=== PATIENT | female | born 1960 | race Caucasian/White ===

== ENCOUNTER 2021-10-01 09:45 | Inpatient (IN) | payer BC ==
[~2021-10-01] VITALS: Ht 165.1 cm; Wt 83.0 kg
[2021-10-01 10:20] VITALS: BP_SYST 155
[2021-10-01 11:49] LABS: BASOPHILS # (AUTO) 0.1 K/uL (0.0-0.2); BASOPHILS % (AUTO) 1.8 % (0.0-2.0); EOSINOPHILS # (AUTO) 0.1 K/uL (0.0-0.4); EOSINOPHILS % (AUTO) 0.9 % (0.0-4.0); HEMATOCRIT 40.5 % (36-48); HEMOGLOBIN 13.6 g/dL (12.0-16.0); LYMPHOCYTES # (AUTO) 3.2 K/uL (1.0-5.5); LYMPHOCYTES % (AUTO) 40.2 % (20.5-51.5); MEAN CORPUSCULAR HEMOGLOBIN 30 pg (27-31); MEAN CORPUSCULAR HGB CONC 34 % (32-36); MEAN CORPUSCULAR VOLUME 90 fL (79.0-98.0); MONOCYTES # (AUTO) 0.4 K/uL (0.0-1.0); MONOCYTES % (AUTO) 4.8 % (1.7-9.3); NEUTROPHILS # (AUTO) 4.2 K/uL (1.8-7.7); NEUTROPHILS % (AUTO) 52.3 % (40.0-70.0); PLATELET COUNT (AUTO) 295 K/uL (130-430); RED CELL DISTRIBUTION WIDTH 13.5 % (9.0-15.0); WHITE BLOOD COUNT (AUTO) 8.1 K/uL (4.8-10.8)
[2021-10-01 11:56] LABS: ANION GAP 10 (5-15); CALCIUM 8.8 mg/dL (8.4-11.0); CHLORIDE 108 mmol/L (98-107); CREATININE 0.93 mg/dL (0.55-1.30); GLUCOSE 117 mg/dL (70-99); POTASSIUM 3.9 mmol/L (3.5-5.1); SODIUM SERUM 144 mmol/L (136-145); UREA NITROGEN, BLOOD 21 mg/dL (8-21)
[2021-10-01 12:01] LABS: GFR AFRICAN AMERICAN 79 mL/min (>90)
[2021-10-01 12:04] LABS: ALANINE AMINOTRANSFERASE 32 U/L (12-78); ALBUMIN 3.5 g/dL (3.4-4.8); ASPARTATE AMINOTRANSFERASE 25 U/L (10-37); TOTAL BILIRUBIN 0.4 mg/dL (0.0-1.0)
[2021-10-01 23:03] VITALS: BP_SYST 172
[2021-10-01] MEDS ORDERED: METO25TA3 PO (23:55)
[2021-10-01] MEDS ORDERED: AMLO5TAB4 PO (23:55)
[2021-10-01] MEDS ORDERED: METF-518 PO (23:55)
[2021-10-02] VITALS (7 sets, daily range): BP systolic 127–150
[2021-10-02] MEDS ORDERED: HYDROcodone/ACETAMIN 5-325 MG TAB (NORCO/ VICODIN) PO PRN (09:00)
[2021-10-02] MEDS ORDERED: NALOXONE HCL 0.4 MG/ML AMP (NARCAN) IVP PRN ×2 (09:00)
[2021-10-02] MEDS: amLODIPine BESYLATE 5 MG TABLET PO SCH (09:00)
[2021-10-02] MEDS ORDERED: LORazepam 2 MG/ML VIAL IVP PRN (09:00)
[2021-10-02] MEDS ORDERED: ONDANSETRON HCL 4 MG/2 ML VIAL IVP PRN (09:00)
[2021-10-02] MEDS ORDERED: HYDROcodone/ACETAMIN 10-325 MG TAB PO PRN (09:00)
[2021-10-02] MEDS ORDERED: ACETAMINOPHEN 325 MG TABLET PO PRN ×2 (09:00→09:30)
[2021-10-02] MEDS ORDERED: INSULIN REGULAR, HUMAN 100 UNITS/ML, 10 ML VIAL (humuLIN R) SUBCUT PRN (09:00)
[2021-10-02] MEDS ORDERED: DEXTROSE 50%-WATER 50 ML DISP.SYRIN IVP PRN (09:45)
[2021-10-02] MEDS ORDERED: D5W 1,000 ML IV PRN (09:45)
[2021-10-02] MEDS ORDERED: GLUCOSE (DEXTROSE) ORAL GEL -Adults PO PRN (09:45)
[2021-10-02] MEDS ORDERED: metFORMIN HCL 500 MG TABLET PO ONE (10:30)
[2021-10-02] MEDS: NORMAL SALINE 5 ML DISP.SYRIN IVF SCH ×2 (13:45→21:23)
[2021-10-02] MEDS ORDERED: NORMAL SALINE 5 ML DISP.SYRIN IVF SCH (14:00)
[2021-10-02] MEDS: metFORMIN HCL 500 MG TABLET PO SCH (17:00)
[2021-10-02] MEDS ORDERED: METOPROLOL SUCCINATE 25 MG TAB.SR.24H (TOPROL XL) PO SCH (21:00)
[2021-10-02] MEDS: METOPROLOL SUCCINATE 50 MG TAB.SR.24H (TOPROL XL) PO SCH (21:23)
[2021-10-02] MEDS: dilTIAZem HCL IVP 5 MG/ML VIAL IVP PRN (22:04)
[2021-10-03] VITALS: BP_SYST 130
[2021-10-03] MEDS: NORMAL SALINE 5 ML DISP.SYRIN IVF SCH ×3 (06:11→20:29)
[2021-10-03] MEDS: dilTIAZem HCL IVP 5 MG/ML VIAL IVP PRN (06:35)
[2021-10-03 07:35] LABS: BASOPHILS % (AUTO) 0.5 % (0.0-2.0); EOSINOPHILS # (AUTO) 0.2 K/uL (0.0-0.4); HEMATOCRIT 41.4 % (36-48); LYMPHOCYTES % (AUTO) 46.6 % (20.5-51.5); MEAN CORPUSCULAR HEMOGLOBIN 31 pg (27-31); MEAN CORPUSCULAR HGB CONC 34 % (32-36); MEAN CORPUSCULAR VOLUME 90 fL (79.0-98.0); MONOCYTES # (AUTO) 0.7 K/uL (0.0-1.0); MONOCYTES % (AUTO) 8.1 % (1.7-9.3); NEUTROPHILS # (AUTO) 3.7 K/uL (1.8-7.7); NEUTROPHILS % (AUTO) 42.8 % (40.0-70.0); PLATELET COUNT (AUTO) 316 K/uL (130-430); RED BLOOD CELL COUNT(AUTO) 4.58 MIL/uL (4.2-6.2); RED CELL DISTRIBUTION WIDTH 13.7 % (9.0-15.0); WHITE BLOOD COUNT (AUTO) 8.5 K/uL (4.8-10.8)
[2021-10-03 07:43] LABS: CALCIUM 8.6 mg/dL (8.4-11.0); POTASSIUM 3.8 mmol/L (3.5-5.1)
[2021-10-03] MEDS: metFORMIN HCL 500 MG TABLET PO SCH ×2 (07:56→17:59)
[2021-10-03] MEDS: amLODIPine BESYLATE 5 MG TABLET PO SCH (07:56)
[2021-10-03 08:00] VITALS: BP_SYST 127
[2021-10-03 11:43] VITALS: BP_SYST 117
[2021-10-03 16:47] VITALS: BP_SYST 121
[2021-10-03 20:00] VITALS: BP_SYST 147
[2021-10-03] MEDS: METOPROLOL SUCCINATE 50 MG TAB.SR.24H (TOPROL XL) PO SCH (20:29)
[2021-10-04 00:59] VITALS: BP_SYST 143
[2021-10-04 04:00] VITALS: BP_SYST 135
[2021-10-04] MEDS: NORMAL SALINE 5 ML DISP.SYRIN IVF SCH (05:49)
[2021-10-04 07:25] LABS: BASOPHILS # (AUTO) 0.1 K/uL (0.0-0.2); BASOPHILS % (AUTO) 0.6 % (0.0-2.0); EOSINOPHILS # (AUTO) 0.1 K/uL (0.0-0.4); EOSINOPHILS % (AUTO) 1.2 % (0.0-4.0); HEMATOCRIT 41.1 % (36-48); HEMOGLOBIN 14.1 g/dL (12.0-16.0); LYMPHOCYTES # (AUTO) 2.9 K/uL (1.0-5.5); MEAN CORPUSCULAR HEMOGLOBIN 31 pg (27-31); MEAN CORPUSCULAR HGB CONC 34 % (32-36); MEAN CORPUSCULAR VOLUME 89 fL (79.0-98.0); MONOCYTES # (AUTO) 0.6 K/uL (0.0-1.0); MONOCYTES % (AUTO) 5.6 % (1.7-9.3); NEUTROPHILS # (AUTO) 7.1 K/uL (1.8-7.7); NEUTROPHILS % (AUTO) 65.6 % (40.0-70.0); PLATELET COUNT (AUTO) 310 K/uL (130-430); RED BLOOD CELL COUNT(AUTO) 4.63 MIL/uL (4.2-6.2); RED CELL DISTRIBUTION WIDTH 13.7 % (9.0-15.0); WHITE BLOOD COUNT (AUTO) 10.8 K/uL (4.8-10.8)
[2021-10-04 08:00] VITALS: BP_SYST 146
[2021-10-04] MEDS: metFORMIN HCL 500 MG TABLET PO SCH (08:35)
[2021-10-04] MEDS: amLODIPine BESYLATE 5 MG TABLET PO SCH (08:36)
[2021-10-04 09:43] LABS: ALBUMIN 3.3 g/dL (3.4-4.8); CREATININE 1.06 mg/dL (0.55-1.30); TOTAL BILIRUBIN 0.7 mg/dL (0.0-1.0)
[2021-10-04 11:19] VITALS: BP_SYST 129
[2021-10-04 11:25] VITALS: BP_SYST 129
== END 2021-10-04 11:50 | disposition home health service (06) | DRG 310 ==
LOC: SED 09:45 → STU 13:41
PROVIDERS: ADMIT Preventive Medicine Preventive Medicine/Occupational Environmental Medicine; ATTEND Preventive Medicine Preventive Medicine/Occupational Environmental Medicine
DX: R00.1 Bradycardia, unspecified (principal); R42 Dizziness and giddiness; I10 Essential (primary) hypertension; Z20.822 Contact with and (suspected) exposure to COVID-19; E11.65 Type 2 diabetes mellitus with hyperglycemia; Z90.710 Acquired absence of both cervix and uterus; Z88.0 Allergy status to penicillin
CPT/HCPCS: 36415; 71045; 80048; 80053; 82962; 83735; 83880; 84100; 84484; 85025; 93005; 93306; 93880; 99285; G0378; J3490